=== PATIENT | female | born 1995 | race Caucasian/White ===

== ENCOUNTER 2017-02-21 21:15 | Emergency (ER) | payer OTHER ==
[~2017-02-21] VITALS: Ht 177.8 cm; Wt 105.2 kg
[~2017-02-21 21:15] MED LIST: ALBUTEROL0.09 MG/A2 IH; AMOXIL500 MG PO; ATIVAN0.5 MG PO; ATIVAN1 MG PO; AUGMENTIN 875 M1 TAB PO; BACTRIM DS 8001 TA1 PO; BIRTH CONTROL1 EAC1 PO; CELEXA20 MG PO; CELEXA40 MG PO; CIPRO250 MG PO; CYCLOBENZAPRINE10 MG PO; FLEXERIL5 MG PO; GLUCOPHAGE500 M1 PO; GLUCOPHAGE500 MG PO; GLYBURIDE5 MG PO; HYDROCODONE BIT1 T11 PO; IBU800 MG PO; INDERAL20 MG PO; INDERAL40 MG PO; LISINOPRIL2.5 MG PO; MACROBID100 M1 PO; METFORMIN850 MG PO; MOTRIN800 MG PO; Metformin Hydr500 MG; NAPROSYN500 MG PO; NORCO 5-325 TA1 EACH PO; PAXIL20 MG PO; PREDNISONE10 MG PO; PYRIDIUM200 MG PO; TOPAMAX100 MG PO; TOPIRAMATE200 MG PO; TOPROL XL200 MG PO; TRULICITY0.75 MG/0. SC; VENTOLIN H0.09 MG/AC INH; WELLBUTRIN XL300 MG PO; ZITHROMAX Z PA250 MG PO; ZITHROMAX Z-PA250 MG PO; ZOFRAN4 MG PO; ZYRTEC10 MG PO
[2017-02-21 21:47] LABS: BASO # 0.1 10*3/uL (0.0-0.1); BASO % 0.5 % (0.0-1.0); EOS # 0.1 10*3/uL (0.0-0.4); EOS % 0.6 % (1.0-4.0); HEMATOCRIT 43.6 % (37.0-47.0); LYMPH # 2.9 10*3/uL (1.3-4.4); LYMPH % 29.4 % (27.0-41.0); MEAN CORPUSCULAR HGB 29.2 pg (27.0-31.0); MEAN CORPUSCULAR HGB CONC 34.4 g/dl (33.0-37.0); MEAN PLATELET VOLUME 11.2 fl (9.6-12.3); MONO # 0.8 10*3/uL (0.1-1.0); MONO % 7.7 % (3.0-9.0); NEUT # 6.2 10*3/uL (2.3-7.9); NEUT % 61.4 % (47.0-73.0); PLATELET COUNT AUTOMATED 295 10*3/uL (130-400); RED BLOOD COUNT 5.13 10*6/uL (4.10-5.10); RED CELL DISTRI WIDTH 12.4 % (0-14.5)
[2017-02-21 21:57] LABS: PROTHROMBIN TIME 10.9 SECONDS (9.0-12.4)
[2017-02-21 22:04] LABS: ALBUMIN 3.4 gm/dl (3.1-4.5); ALKALINE PHOSPHATASE 79 U/L (45-117); BILIRUBIN, TOTAL 0.3 mg/dl (0.2-1.0); BUN 11 mg/dl (7-24); CARBON DIOXIDE 27 mmol/L (21-32); CHLORIDE 103 mmol/L (98-107); EST GLOM FILT AFRICAN AMERICAN > 60 ml/min; MAGNESIUM 1.8 mg/dL (1.5-2.1); SGOT/AST 31 IU/L (3-35); SGPT/ALT 60 U/L (12-78); SODIUM 137 mmol/L (136-145); TOTAL PROTEIN 6.5 gm/dL (6.4-8.2)
[2017-02-21 22:05] LABS: TROPONIN I < 0.015 ng/ml (<0.045)
[2017-02-21 22:06] LABS: GLUCOSE 385 mg/dL (65-99)
[2017-02-21 22:21] VITALS: BP 116/54
[2017-02-21] MEDS ORDERED: METFORMIN HCL500 MG PO (22:36)
== END 2017-02-21 22:42 | disposition home or self-care (01) ==
LOC: ED 21:15
PROVIDERS: Emergency Medicine Emergency Medical Services
DX: R07.89 Other chest pain (principal); E11.9 Type 2 diabetes mellitus without complications; Z79.4 Long term (current) use of insulin; Z88.1 Allergy status to other antibiotic agents; F41.9 Anxiety disorder, unspecified

== ENCOUNTER 2017-03-23 22:04 | Emergency (ER) | payer OTHER ==
[~2017-03-23] VITALS: Ht 177.8 cm; Wt 90.7 kg
--- NOTE | ~2017-03-23 | EKG ---
[place], [place] ELECTROCARDIOGRAM REPORT NAME: RODERICK OJEDA UNIT #: [id number] ROOM: DOCTOR: MILAN LI MD BIRTHDATE: [birth year] DOS: 03/23/2017 TIME: 2347. FINDINGS: Normal sinus rhythm. Probable early repolarization. Borderline electrocardiogram. MILAN LI MD CM:EKGRPT:ELECTROCARDIOGRAM REPORT [id number] 1257 MILAN LI MD
--- NOTE | ~2017-03-23 | EKG ---
[place], [place] ELECTROCARDIOGRAM REPORT NAME: RODERICK OJDEA UNIT #: [id number] ROOM: DOCTOR: MILAN LI MD BIRTHDATE: [birth year] DOS: 03/23/2017 TIME: 2245. FINDINGS: Sinus arrhythmia. Early repolarization. Borderline electrocardiogram. MILAN LI MD CM:EKGRPT:ELECTROCARDIOGRAM REPORT 1139 1258 MILAN LI MD
[~2017-03-23 22:04] MED LIST changes: +METFORMIN HCL500 MG PO
[2017-03-23 22:46] LABS: BASO % 0.4 % (0.0-1.0); HEMATOCRIT 43.7 % (37.0-47.0); HEMOGLOBIN 15.2 g/dl (12.0-16.0); LYMPH # 1.7 10*3/uL (1.3-4.4); LYMPH % 17.9 % (27.0-41.0); MEAN CELL VOLUME 83.6 fl (81.0-99.0); MEAN CORPUSCULAR HGB 29.1 pg (27.0-31.0); MEAN CORPUSCULAR HGB CONC 34.8 g/dl (33.0-37.0); MEAN PLATELET VOLUME 10.9 fl (9.6-12.3); MONO # 0.6 10*3/uL (0.1-1.0); MONO % 5.8 % (3.0-9.0); NEUT # 7.3 10*3/uL (2.3-7.9); NEUT % 75.6 % (47.0-73.0); PLATELET COUNT AUTOMATED 266 10*3/uL (130-400); RED BLOOD COUNT 5.23 10*6/uL (4.10-5.10); RED CELL DISTRI WIDTH 12.1 % (0-14.5); WHITE BLOOD COUNT 9.7 10*3/uL (4.8-10.8)
[2017-03-23 23:00] LABS: INTERNATIONAL NORM RATIO 1.1 (2.0-3.5); PROTHROMBIN TIME 11.5 SECONDS (9.0-12.4)
[2017-03-23 23:03] LABS: ALBUMIN 3.7 gm/dl (3.1-4.5); ALKALINE PHOSPHATASE 73 U/L (45-117); BILIRUBIN, TOTAL 0.5 mg/dl (0.2-1.0); BUN 10 mg/dl (7-24); CARBON DIOXIDE 25 mmol/L (21-32); CHLORIDE 105 mmol/L (98-107); EST GLOM FILT AFRICAN AMERICAN > 60 ml/min; GLUCOSE 283 mg/dL (65-99); MAGNESIUM 1.7 mg/dL (1.5-2.1); POTASSIUM 3.7 mmol/L (3.5-5.1); SGOT/AST 36 IU/L (3-35); SGPT/ALT 62 U/L (12-78); SODIUM 137 mmol/L (136-145); TOTAL PROTEIN 6.8 gm/dL (6.4-8.2)
[2017-03-23 23:06] LABS: TROPONIN I < 0.015 ng/ml (<0.045)
[2017-03-24 00:17] VITALS: BP 120/70
[2017-03-24] MEDS ORDERED: METFORMIN500 MG PO (01:11)
== END 2017-03-24 01:09 | disposition home or self-care (01) ==
LOC: ED 22:04
PROVIDERS: Student in an Organized Health Care Education/Training Program
DX: F41.0 Panic disorder [episodic paroxysmal anxiety] (principal); E11.9 Type 2 diabetes mellitus without complications; Z88.1 Allergy status to other antibiotic agents

== ENCOUNTER 2017-06-30 13:41 | Emergency (ER) | payer OTHER ==
[~2017-06-30] VITALS: Wt 105.2 kg
[~2017-06-30 13:41] MED LIST changes: +METFORMIN500 MG PO
[2017-06-30 13:48] VITALS: BP 119/68
[2017-06-30 14:20] LABS: BASO % 0.4 % (0.0-1.0); EOS # 0.1 10*3/uL (0.0-0.4); EOS % 0.8 % (1.0-4.0); HEMATOCRIT 45.9 % (37.0-47.0); LYMPH % 21.9 % (27.0-41.0); MEAN CELL VOLUME 84.4 fl (81.0-99.0); MEAN CORPUSCULAR HGB 29.4 pg (27.0-31.0); MEAN CORPUSCULAR HGB CONC 34.9 g/dl (33.0-37.0); MEAN PLATELET VOLUME 10.8 fl (9.6-12.3); MONO # 0.8 10*3/uL (0.1-1.0); MONO % 8.3 % (3.0-9.0); NEUT # 6.4 10*3/uL (2.3-7.9); NEUT % 68.2 % (47.0-73.0); PLATELET COUNT AUTOMATED 261 10*3/uL (130-400); RED BLOOD COUNT 5.44 10*6/uL (4.10-5.10); RED CELL DISTRI WIDTH 12.6 % (0-14.5); WHITE BLOOD COUNT 9.3 10*3/uL (4.8-10.8)
[2017-06-30 14:26] LABS: INTERNATIONAL NORM RATIO 1.1 (2.0-3.5); PROTHROMBIN TIME 11.3 SECONDS (9.0-12.4)
[2017-06-30 14:37] LABS: ALBUMIN 3.6 gm/dl (3.1-4.5); ALKALINE PHOSPHATASE 82 U/L (45-117); BILIRUBIN, TOTAL 0.8 mg/dl (0.2-1.0); BUN 8 mg/dl (7-24); CARBON DIOXIDE 24 mmol/L (21-32); CHLORIDE 106 mmol/L (98-107); EST GLOM FILT AFRICAN AMERICAN > 60 ml/min; GLUCOSE 296 mg/dL (65-99); MAGNESIUM 1.9 mg/dL (1.5-2.1); SGOT/AST 39 IU/L (3-35); SGPT/ALT 65 U/L (12-78); SODIUM 136 mmol/L (136-145)
[2017-06-30 14:39] LABS: TROPONIN I < 0.015 ng/ml (<0.045)
[2017-06-30 14:54] LABS: BILIRUBIN NEGATIVE (NEGATIVE); BLOOD NEGATIVE (NEGATIVE); CLARITY CLEAR (CLEAR); COLOR YELLOW (YELLOW); GLUCOSE 3+ (NEGATIVE); KETONE 2+ (NEGATIVE); LEUKO ESTERASE NEGATIVE (NEGATIVE); NITRITE NEGATIVE (NEGATIVE); PH 5.5 (5.0-9.0); PROTEIN NEGATIVE (NEGATIVE); UROBILINOGEN 0.2 E.U./dl (0.2-1.0)
[2017-06-30 15:06] LABS: BACTERIA 1+; URINE REFLEX COMMENT NO (NO); YEAST 3+
[2017-06-30] MEDS ORDERED: METFORMIN HCL500 MG PO (15:39)
== END 2017-06-30 21:30 | disposition home or self-care (01) ==
LOC: ED 13:41
PROVIDERS: Physician Assistant
DX: R07.9 Chest pain, unspecified (principal); E11.9 Type 2 diabetes mellitus without complications; Z88.1 Allergy status to other antibiotic agents

== ENCOUNTER 2017-08-06 22:49 | Emergency (ER) | payer OTHER ==
[~2017-08-06] VITALS: Ht 180.3 cm; Wt 105.2 kg
[2017-08-06 22:56] VITALS: BP 154/69
[2017-08-06 23:26] LABS: BASO % 0.4 % (0.0-1.0); EOS % 0.3 % (1.0-4.0); HEMATOCRIT 42.8 % (37.0-47.0); HEMOGLOBIN 14.4 g/dl (12.0-16.0); LYMPH # 2.5 10*3/uL (1.3-4.4); LYMPH % 31.1 % (27.0-41.0); MEAN CELL VOLUME 85.8 fl (81.0-99.0); MEAN CORPUSCULAR HGB 28.9 pg (27.0-31.0); MEAN CORPUSCULAR HGB CONC 33.6 g/dl (33.0-37.0); MEAN PLATELET VOLUME 11.2 fl (9.6-12.3); MONO # 0.7 10*3/uL (0.1-1.0); MONO % 8.3 % (3.0-9.0); NEUT # 4.7 10*3/uL (2.3-7.9); NEUT % 59.6 % (47.0-73.0); PLATELET COUNT AUTOMATED 238 10*3/uL (130-400); RED BLOOD COUNT 4.99 10*6/uL (4.10-5.10); RED CELL DISTRI WIDTH 12.1 % (0-14.5); WHITE BLOOD COUNT 7.9 10*3/uL (4.8-10.8)
[2017-08-06 23:36] LABS: ACT PARTIAL THROMBO TIME 23.8 SECONDS (20.8-31.5)
[2017-08-06 23:43] LABS: ALBUMIN 3.3 gm/dl (3.1-4.5); ALKALINE PHOSPHATASE 77 U/L (45-117); BUN 13 mg/dl (7-24); CHLORIDE 102 mmol/L (98-107); CREATININE 1.01 mg/dL (0.55-1.02); MAGNESIUM 1.8 mg/dL (1.5-2.1); SGOT/AST 27 IU/L (3-35); SGPT/ALT 51 U/L (12-78); SODIUM 135 mmol/L (136-145); TOTAL PROTEIN 6.4 gm/dL (6.4-8.2)
[2017-08-06 23:45] LABS: TROPONIN I < 0.015 ng/ml (<0.045)
[2017-08-07] MEDS ORDERED: METFORMIN1000 MG PO (00:39)
== END 2017-08-07 01:29 | disposition home or self-care (01) ==
LOC: ED 22:49
PROVIDERS: Emergency Medicine Emergency Medical Services
DX: M94.0 Chondrocostal junction syndrome [Tietze] (principal); E11.65 Type 2 diabetes mellitus with hyperglycemia; E28.2 Polycystic ovarian syndrome; F43.10 Post-traumatic stress disorder, unspecified; F41.8 Other specified anxiety disorders; M25.561 Pain in right knee; J45.909 Unspecified asthma, uncomplicated; Z88.1 Allergy status to other antibiotic agents

== ENCOUNTER 2017-08-17 08:54 | Inpatient (IN) | payer OTHER ==
[~2017-08-17] VITALS: Ht 180.3 cm; Wt 139.9 kg
--- NOTE | ~2017-08-17 | PR ---
[place], [place] PROGRESS NOTE [id number] UN[facility] #: [id number] ROOM: 522 DOCTOR: SHELTON BENDER MD,BETTY BIRTHDATE: [birth year] DOS: 08/19/2017 SUBJECTIVE: She has been noted progressive reduction in respiratory symptoms at this time. The coughing, wheezing and shortness of breath all improved significantly. OBJECTIVE: VITAL SIGNS: Normal temperature, respiratory rate 20, heart rate 72, blood pressure 124/65. HEENT: Chronic obesity. NECK: Supple. CARDIOVASCULAR: S1, S2 audible. LUNGS: Mild to moderate decreased breath sounds, scattered expiratory wheezing, no crackles. ABDOMEN: Soft, nontender. IMPRESSION: Progressive resolution of acute exacerbation of bronchial asthma, acute tracheobronchitis noted at the present time. PLAN OF MANAGEMENT: The patient could be discharged home today on oral medications at tapering dose of prednisone, antibiotics, and inhaled corticosteroids and short acting bronchodilators. Outpatient followup suggested after discharge for further office assessment for the management of bronchial asthma. BETTY PEOPLES MD CM:PNTRANS [id number] BETTY BENDER MD 08/20/17 0015 interface
--- NOTE | ~2017-08-17 | CON ---
[place], [place] REPORT OF CONSULTATION NAME[id number] UNIT #: [id number] ROOM: 522 DOCTOR: BETTY MATSON MD BIRTHDATE: [birth year] DOS: 08/18/2017 PULMONARY CONSULTATION EVALUATION AND MANAGEMENT CONSULTATION REQUESTED BY: Hospitalist services. REASON FOR CONSULTATION: Assessment of bronchial asthma. HISTORY OF PRESENT ILLNESS: A 22-year-old white female who has been known with history of bronchial asthma since childhood, has not had any flare of bronchial asthma, not using regular respiratory medications for the past 20 years. She has been admitted to the hospital under the hospitalist services on 08/17/2017. The patient stated that she developed acute respiratory sickness about couple of days ago prior to admission. She was noted some sore throat with later on symptoms of shortness of breath, difficulty taking deep breathing. She also developed severe wheezing as well as tightness in the chest. The patient does have a cough which has been noted mild to moderate with minimal sputum expectoration or nonproductive cough. She denies symptoms of hemoptysis. REVIEW OF SYSTEMS: CONSTITUTIONAL: Fatigue and tiredness noted without symptoms of fever or chills. EYES: Denies any burning, redness, or tenderness. EAR, NOSE, THROAT SYMPTOMS: Denies sore throat, hoarseness, otalgia, postnasal drainage or epistaxis. CARDIOVASCULAR: Denies anginal pain, edema or pain of the lower extremities. GASTROINTESTINAL: Dysphagia, nausea, vomiting, diarrhea, abdominal pain, hematemesis, melena, or hematochezia. SKIN: Denies lesions or rashes. CENTRAL NERVOUS SYSTEM: No dizziness, headache, diplopia, syncopal episodes. Remaining systems were reviewed and they were noted all negative. PAST MEDICAL HISTORY: 1. Known with history of bronchial asthma. 2. Obesity. 3. Polycystic ovarian syndrome. 4. Type 2 diabetes mellitus. 5. Generalized anxiety disorder. 6. Hematuria was also described in the past. SURGICAL HISTORY: Noted tonsillectomy. SOCIAL HISTORY: The patient stated that she is single, worked in the [employer]. Does not have any children. Smoking was noted since younger age, a half a pack of cigarettes per day. Denies history of alcohol use or any illicit drugs. FAMILY HISTORY: History of coronary artery disease in the father and COPD with fibromyalgia reported in the mother. [place], [place] REPORT OF CONSULTATION NAME: RODERICK OJEDA UNIT #: [id number] ROOM: 522 DOCTOR: SHELTON BENDER MD,BETTY BIRTHDATE: [birth year] HOME MEDICATIONS: Noted use of Ativan. DRUG ALLERGIES: NOTED ALLERGY TO OMNICEF. PHYSICAL EXAMINATION: GENERAL: This is a 22-year-old white female, currently sitting on her bed without any acute distress at this time. Height was noted 5 feet 11 inches, weight of 308 pounds, BMI 43. VITAL SIGNS: Normal temperature, respiratory rate was recorded 20-25, heart rate 96-107, blood pressure 142/88-138/78. Intake patient is 5200 mL, output 800 mL without Lee catheter. Pulse ox is 94-98% saturation on room air recorded. HEENT: Examination shows chronic obesity. NECK: Supple. Decreased posterior pharyngeal space, high tongue base, crowding of soft tissue structures. CARDIOVASCULAR: S1, S2 audible. LUNGS: Noted with moderate reduced breath sounds, expiratory wheezing without any crackles. ABDOMEN: Soft, nontender and obese. EXTREMITIES: Show no edema, clubbing, cyanosis. NEUROLOGIC: Cranial nerves 2-12 intact. No focal deficits. MUSCULOSKELETAL: No deformities. SKIN: Showed no lesions or rashes. LABORATORY DATA: CBC 08/17/2017, WBC count 14.6, hemoglobin and hematocrit normal, platelet count were normal. CMP of 08/17/2017: Glucose 262, BUN and creatinine was normal. Bilirubin 1.2. Lactic acid yesterday was noted 1.5, which were normal. Ultrasound for lower extremities was noted without any deep venous thrombosis yesterday. CMP this morning, glucose 261, BUN and creatinine was normal. Carbon dioxide 18. LFTs were normal. CBC of this morning, WBC count 15.2, remaining CBC was normal. PT/PTT normal this morning. Chest x-ray, 2-view which was done for the patient on this admission was personally reviewed, does not show any acute pulmonary infiltration or other abnormalities. Bedside blood glucose yesterday evening was elevated at 591. Influenza A and B, nasal washing antigen noted negative for influenza A and B, nasal washing antigens. IMPRESSION: 1. The patient will be currently admitted to the hospital, low grade, chronic nicotine dependence, history of bronchial asthma, currently admitted to the hospice with severe acute exacerbation of bronchial asthma and acute bronchitis, could be viral in origin. 2. Leukocytosis, steroid induced. 3. Uncontrolled diabetes mellitus, worsened further with the use of the corticosteroids with significant elevation of the blood glucose noted last evening. 4. History of polycystic ovarian syndrome. 5. History of general anxiety disorder and others. PLAN OF MANAGEMENT: The patient was started on the bronchodilator which will be continued every 4 hours by the primary care attending team. The patient is [place], [place] REPORT OF CONSULTATION NAME: RODERICK OJEDA UNIT #: [id number] ROOM: 522 DOCTOR: SHELTON BENDER MD,BETTY BIRTHDATE: [birth year] getting IV Solu-Medrol 60 mg b.i.d. which will be gradually decreased based on improvement in the symptoms. Monitor respiratory status. Supportive therapy, plan of management or the respiratory viral panel for this patient as well. Addition treatment changes need to be made for the patient based on the progression of the illness. Sputum for Gram stain culture and expectorate any sputum will be sent to the lab. Other supportive plan of therapy, care and management. Usual care. Reduction of Solu-Medrol based on progression of illness. The diabetes mellitus has already been managed. The patient with addition of changes in the management, use of sliding scale insulin coverage and other medication adjusted accordingly. Tobacco cessation has been discussed with the patient. User nicotine replacement patches, the patient would like to use them. Thanks for allowing me to participate in the care of this patient. BETTY PEOPLES MD CM:CONSTR:REPORT OF CONSULTATION 1126 08/18/17 1656 interface
[~2017-08-17 08:54] MED LIST changes: +METFORMIN1000 MG PO
[2017-08-17 09:03] VITALS: BP 133/75
[2017-08-17 09:23] LABS: BASO % 0.2 % (0.0-1.0); HEMATOCRIT 45.7 % (37.0-47.0); HEMOGLOBIN 15.7 g/dl (12.0-16.0); LYMPH # 2.1 10*3/uL (1.3-4.4); LYMPH % 14.6 % (27.0-41.0); MEAN CELL VOLUME 85.1 fl (81.0-99.0); MEAN CORPUSCULAR HGB 29.2 pg (27.0-31.0); MEAN CORPUSCULAR HGB CONC 34.4 g/dl (33.0-37.0); MONO # 1.3 10*3/uL (0.1-1.0); NEUT # 11.1 10*3/uL (2.3-7.9); NEUT % 75.6 % (47.0-73.0); PLATELET COUNT AUTOMATED 263 10*3/uL (130-400); RED BLOOD COUNT 5.37 10*6/uL (4.10-5.10); RED CELL DISTRI WIDTH 12.1 % (0-14.5); WHITE BLOOD COUNT 14.6 10*3/uL (4.8-10.8)
[2017-08-17 09:37] LABS: ALBUMIN 3.4 gm/dl (3.1-4.5); ALKALINE PHOSPHATASE 81 U/L (45-117); BUN 8 mg/dl (7-24); CHLORIDE 104 mmol/L (98-107); CREATININE 0.74 mg/dL (0.55-1.02); POTASSIUM 3.9 mmol/L (3.5-5.1); SGOT/AST 16 IU/L (3-35); SGPT/ALT 38 U/L (12-78); SODIUM 136 mmol/L (136-145); TOTAL PROTEIN 7.1 gm/dL (6.4-8.2)
[2017-08-17 11:41] VITALS: BP 143/83; BP 147/83
[2017-08-17 12:00] VITALS: BP 147/83
--- NOTE | 2017-08-17 13:44 | NUR ---
DR. PEOPLES CONTACTED FOR CONSULT.
--- NOTE | 2017-08-17 14:25 | NUR ---
Time: 1140 A 22 year old FEMALE admitted to 5E under services of ELVA ALAS DO, Pt. arrived via stretcher from ER. Chief complaint: KATE CEJA
[2017-08-17 16:00] VITALS: BP 130/75
[2017-08-17 20:00] VITALS: BP 129/83; BP 138/78
--- NOTE | 2017-08-17 20:00 | NUR ---
SITTING UP IN BED WITH HOB ELEVATED. LUNGS DIMINISHED BILATERALLY; PT. HAS AN OCCASIONAL MOIST COUGH; NONPRODUCTIVE AT THIS TIME. IV FLUIDS INFUSING INTO RIGHT ARM WITHOUT DIFFICULTY; SITE ASYMPTOMATIC. PT. VOICES NO C/O AT THIS TIME; NO DISTRESS NOTED. CALL LIGHT WITHIN REACH.
--- NOTE | 2017-08-17 22:24 | NUR ---
BLOOD SUGAR CRITICALLY HIGH; STAT REFLUX ORDERED EARLIER. CALLED DR. AKHTAR; ORDERS RECEIVED TO GIVE 14 UNITS OF INSULIN & RECHECK BLOOD SUGAR IN ONE HOUR.
--- NOTE | 2017-08-17 23:17 | NUR ---
BLOOD SUGAR 390; DR. AKHTAR INFORMED.
[2017-08-18] VITALS: BP 140/86
[2017-08-18 06:20] LABS: HEMATOCRIT 43.1 % (37.0-47.0); HEMOGLOBIN 14.5 g/dl (12.0-16.0); MEAN CELL VOLUME 85.3 fl (81.0-99.0); MEAN CORPUSCULAR HGB 28.7 pg (27.0-31.0); MEAN CORPUSCULAR HGB CONC 33.6 g/dl (33.0-37.0); MEAN PLATELET VOLUME 10.9 fl (9.6-12.3); PLATELET COUNT AUTOMATED 275 10*3/uL (130-400); RED BLOOD COUNT 5.05 10*6/uL (4.10-5.10); RED CELL DISTRI WIDTH 12.1 % (0-14.5); WHITE BLOOD COUNT 15.2 10*3/uL (4.8-10.8)
--- NOTE | 2017-08-18 06:21 | NUR ---
BLOOD SUGAR 250; COVERAGE GIVEN PER EMAR.
[2017-08-18 06:50] LABS: ALBUMIN 3.2 gm/dl (3.1-4.5); BUN 10 mg/dl (7-24); CHLORIDE 109 mmol/L (98-107); CHOLESTEROL 165 mg/dL (<200); CREATININE 0.56 mg/dL (0.55-1.02); MAGNESIUM 2.2 mg/dL (1.5-2.1); PHOSPHOROUS 2.9 mg/dL (2.5-4.9); POTASSIUM 4.2 mmol/L (3.5-5.1); SGOT/AST 8 IU/L (3-35); SGPT/ALT 29 U/L (12-78); SODIUM 138 mmol/L (136-145); TRIGLYCERIDES 75 mg/dl (<150); VLDL CHOLESTEROL 15 mg/dL (6-40)
[2017-08-18 06:56] LABS: ALKALINE PHOSPHATASE 78 U/L (45-117); FREE T4 1.13 ng/dl (0.76-1.46); HDL CHOLESTEROL 39 mg/dl (40-60); LDL CHOLESTEROL 111 mg/dL (9-159); THYROID STIM HORMONE (HS) 0.946 uIU/ml (0.358-4.75)
[2017-08-18 06:57] LABS: BASOPHILS 1 % (0-1); TOTAL CELLS COUNTED 100 #CELLS
[2017-08-18 06:58] LABS: PLATELET SUFFICIENCY NORMAL (NORMAL)
[2017-08-18 07:08] LABS: ACT PARTIAL THROMBO TIME 24.7 SECONDS (20.8-31.5); INTERNATIONAL NORM RATIO 1.1 (2.0-3.5)
[2017-08-18 08:00] VITALS: BP 142/88
--- NOTE | 2017-08-18 08:41 | NUR ---
Deportation Examiner in to talk to patient. Patient states lives at HOME with HER PARENTS AND BROTHER. There are 12 steps in the home. Physician: NO PCP [facility]acy: [facility] [place] Home health services: NONE Patient's level of ADLs: INDEPENDENT Patient has working utilities: YES DME: NONE Follow-up physician's appointment after d/c: WILL BE MADE PRIOR TO DC Does patient want to access PORTAL?: Discharge plan HOME. JESSICA JIN
[2017-08-18 08:54] LABS: VITAMIN D, 25-HYDROXY 8.7 ng/mL (30-100)
--- NOTE | 2017-08-18 11:23 | NUR ---
Shift chart check completed.
[2017-08-18 12:00] VITALS: BP 129/59; BP 131/44
--- NOTE | 2017-08-18 13:48 | NUR ---
RESPIRATORY VIRUS PROFILE SENT
[2017-08-18 16:00] VITALS: BP 112/51
--- NOTE | 2017-08-18 17:00 | NUR ---
IV IN RIGHT FA INFILTRATED, NEW IV STARTED RIGHT AC AFTER SEVERAL UNSUCCESSFUL ATTEMPTS. PT TOLERATED WELL, GOOD BLOOD RETURN, IVF RUNNING
[2017-08-18 20:00] VITALS: BP 125/60
--- NOTE | 2017-08-18 22:04 | NUR ---
24 HR chart check completed.
[2017-08-19] VITALS: BP 105/86
--- NOTE | 2017-08-19 02:55 | NUR ---
PATIENT RESTING IN BED WITH NO S/S OF DISTRESS. BED IN LOWEST POSITION, CALL LIGHT IN REACH
[2017-08-19 06:15] LABS: BASO % 0.1 % (0.0-1.0); HEMATOCRIT 44.9 % (37.0-47.0); HEMOGLOBIN 14.5 g/dl (12.0-16.0); LYMPH # 1.2 10*3/uL (1.3-4.4); LYMPH % 7.8 % (27.0-41.0); MEAN CELL VOLUME 87.9 fl (81.0-99.0); MEAN CORPUSCULAR HGB 28.4 pg (27.0-31.0); MEAN CORPUSCULAR HGB CONC 32.3 g/dl (33.0-37.0); MEAN PLATELET VOLUME 11.2 fl (9.6-12.3); MONO # 0.4 10*3/uL (0.1-1.0); MONO % 2.5 % (3.0-9.0); NEUT # 13.3 10*3/uL (2.3-7.9); NEUT % 88.2 % (47.0-73.0); PLATELET COUNT AUTOMATED 282 10*3/uL (130-400); RED BLOOD COUNT 5.11 10*6/uL (4.10-5.10); RED CELL DISTRI WIDTH 12.3 % (0-14.5); WHITE BLOOD COUNT 15.1 10*3/uL (4.8-10.8)
[2017-08-19 06:34] LABS: BUN 16 mg/dl (7-24); CHLORIDE 108 mmol/L (98-107); CREATININE 0.75 mg/dL (0.55-1.02); MAGNESIUM 2.2 mg/dL (1.5-2.1); PHOSPHOROUS 4.3 mg/dL (2.5-4.9); POTASSIUM 4.5 mmol/L (3.5-5.1); SODIUM 139 mmol/L (136-145)
[2017-08-19 08:00] VITALS: BP 124/65
[2017-08-19] MEDS ORDERED: PREDNISONE10 MG PO (11:16)
[2017-08-19] MEDS ORDERED: PROAIR HFA8.5 GM INH (11:16)
[2017-08-19] MEDS ORDERED: GLUCOPHAGE500 MG PO (11:16)
[2017-08-19] MEDS ORDERED: DOXYCYCLINE100 M3 PO (11:16)
--- NOTE | 2017-08-19 11:34 | NUR ---
IV IN RIGHT AC REMOVED, DRESSING APPLIED. PT TO BE D/C HOME.
--- NOTE | 2017-08-19 11:55 | NUR ---
Discharge instructions reviewed with patient. Patient receptive and verbalizes understanding. Follow-up care understood. Written instructions given to patient. understands new rx electronically sent to pharmacy and to cherry picker operator new rx at pharmacy. no questions at this time. discharge complete CHARITY GIBBONS
[2017-08-22 01:06] LABS: ADENOVIRUS Negative (Negative); INFLUENZA A Negative (Negative); INFLUENZA B Negative (Negative); METAPNEUMOVIRUS Negative (Negative); PARAINFLUENZA 1 Negative (Negative); PARAINFLUENZA 2 Negative (Negative); PARAINFLUENZA 3 Negative (Negative); RHINOVIRUS Positive (Negative); RSV A Negative (Negative); RSV B Negative (Negative)
== END 2017-08-19 11:55 | disposition home or self-care (01) | DRG 871 ==
LOC: ED → 5E 10:47 → EDHOLD 10:47 → 5E 11:03
PROVIDERS: Hospitalist; Internal Medicine Critical Care Medicine; Nurse Practitioner Family; ADMIT Internal Medicine
DX: A41.9 Sepsis, unspecified organism (principal); J18.9 Pneumonia, unspecified organism; E44.0 Moderate protein-calorie malnutrition; J45.901 Unspecified asthma with (acute) exacerbation; E11.65 Type 2 diabetes mellitus with hyperglycemia; Z68.41 Body mass index [BMI] 40.0-44.9, adult; F07.81 Postconcussional syndrome; F41.1 Generalized anxiety disorder; Z77.22 Contact with and (suspected) exposure to environmental tobacco smoke (acute) (chronic); E28.2 Polycystic ovarian syndrome; J20.9 Acute bronchitis, unspecified; E66.9 Obesity, unspecified; Z79.84 Long term (current) use of oral hypoglycemic drugs; Z88.8 Allergy status to other drugs, medicaments and biological substances; Z82.5 Family history of asthma and other chronic lower respiratory diseases; Z83.3 Family history of diabetes mellitus; Z83.6 Family history of other diseases of the respiratory system; Z79.899 Other long term (current) drug therapy; D72.829 Elevated white blood cell count, unspecified; T38.0X5A Adverse effect of glucocorticoids and synthetic analogues, initial encounter; Y92.89 Other specified places as the place of occurrence of the external cause

== ENCOUNTER → 2017-10-16 | Outpatient (CLI) | payer OTHER ==
[~2017-10-16] MED LIST changes: +DOXYCYCLINE100 M3 PO; +PROAIR HFA8.5 GM INH
== END | disposition home or self-care (01) ==
LOC: RAD 14:09
DX: R05 Cough (principal); R07.9 Chest pain, unspecified; J40 Bronchitis, not specified as acute or chronic; Z87.09 Personal history of other diseases of the respiratory system; Z87.01 Personal history of pneumonia (recurrent)

== ENCOUNTER 2017-10-29 13:54 | Inpatient (IN) | payer OTHER ==
[~2017-10-29] VITALS: Ht 177.8 cm; Wt 142.1 kg
[2017-10-29] VITALS (7 sets, daily range): BP systolic 107–136; BP diastolic 54–78
--- NOTE | ~2017-10-29 | EKG ---
[place], [place] ELECTROCARDIOGRAM REPORT NAME: RODERICK OJEDA UNIT #: [id number] ROOM: 422 DOCTOR: SHELTON BENDER MD,BETTY BIRTHDATE: [birth year] DOS: 10/29/2017 Electrocardiogram done on 10/29/2017 at 4:21 p.m. Sinus tachycardia was noted. The patient's heart rate of 113 beats per minute without any ischemic changes or other abnormalities. BETTY PEOPLES MD CM:EKGRPT:ELECTROCARDIOGRAM REPORT 1421 1503 BETTY BENDER MD
[2017-10-29 14:58] LABS: BASO % 0.3 % (0.0-1.0); HEMATOCRIT 42.2 % (37.0-47.0); HEMOGLOBIN 14.5 g/dl (12.0-16.0); LYMPH # 0.9 10*3/uL (1.3-4.4); LYMPH % 9.5 % (27.0-41.0); MEAN CELL VOLUME 82.7 fl (81.0-99.0); MEAN CORPUSCULAR HGB 28.4 pg (27.0-31.0); MEAN CORPUSCULAR HGB CONC 34.4 g/dl (33.0-37.0); MEAN PLATELET VOLUME 10.2 fl (9.6-12.3); MONO # 0.5 10*3/uL (0.1-1.0); MONO % 5.5 % (3.0-9.0); NEUT # 8.3 10*3/uL (2.3-7.9); NEUT % 84.4 % (47.0-73.0); PLATELET COUNT AUTOMATED 328 10*3/uL (130-400); RED CELL DISTRI WIDTH 12.4 % (0-14.5); WHITE BLOOD COUNT 9.9 10*3/uL (4.8-10.8)
[2017-10-29 15:13] LABS: ALBUMIN 3.7 gm/dl (3.1-4.5); ALKALINE PHOSPHATASE 65 U/L (45-117); BUN 8 mg/dl (7-24); CHLORIDE 105 mmol/L (98-107); CREATININE 0.83 mg/dL (0.55-1.02); POTASSIUM 3.6 mmol/L (3.5-5.1); SGOT/AST 17 IU/L (3-35); SGPT/ALT 30 U/L (12-78); SODIUM 139 mmol/L (136-145); TOTAL PROTEIN 7.1 gm/dL (6.4-8.2)
--- NOTE | 2017-10-29 16:58 | NUR ---
RESTING IN BED. RESPS ARE MILDLY LABORED. FEELING DIZZY. RAYA STEIN RN
--- NOTE | 2017-10-29 20:30 | NUR ---
Time: 2029 A 22 year old FEMALE admitted to 4E under services of ZACHARY WALLS DO. Pt. arrived via wheel chair from ER. Chief complaint: RESP ILNESS. SWATI WOODRUFF D
--- NOTE | 2017-10-29 22:26 | NUR ---
MED REC UP TO DATE, PER PATIENT.
[2017-10-29] MEDS ORDERED: METFORMIN1000 MG PO (22:27)
[2017-10-30] VITALS: BP 119/76
--- NOTE | 2017-10-30 02:00 | NUR ---
SLEEPING. RESP EASY AND NONLABORED ON ROOM AIR. NO DISTRESS NOTED. CALL LIGHT IN REACH. WILL CONTINUE TO MONITOR.
[2017-10-30 07:25] LABS: BASO % 0.1 % (0.0-1.0); HEMATOCRIT 42.7 % (37.0-47.0); HEMOGLOBIN 14.6 g/dl (12.0-16.0); LYMPH # 0.8 10*3/uL (1.3-4.4); LYMPH % 8.8 % (27.0-41.0); MEAN CELL VOLUME 85.4 fl (81.0-99.0); MEAN CORPUSCULAR HGB 29.2 pg (27.0-31.0); MEAN CORPUSCULAR HGB CONC 34.2 g/dl (33.0-37.0); MEAN PLATELET VOLUME 10.6 fl (9.6-12.3); MONO # 0.3 10*3/uL (0.1-1.0); MONO % 3.3 % (3.0-9.0); NEUT % 87.3 % (47.0-73.0); PLATELET COUNT AUTOMATED 338 10*3/uL (130-400); RED CELL DISTRI WIDTH 12.4 % (0-14.5); WHITE BLOOD COUNT 9.1 10*3/uL (4.8-10.8)
[2017-10-30 07:54] LABS: BUN 9 mg/dl (7-24); CHLORIDE 104 mmol/L (98-107); CHOLESTEROL 145 mg/dL (<200); CREATININE 0.83 mg/dL (0.55-1.02); PHOSPHOROUS 2.5 mg/dL (2.5-4.9); POTASSIUM 3.4 mmol/L (3.5-5.1); SODIUM 140 mmol/L (136-145); TRIGLYCERIDES 100 mg/dl (<150); VLDL CHOLESTEROL 20 mg/dL (6-40)
[2017-10-30 08:00] VITALS: BP 125/42
[2017-10-30 08:02] LABS: ACT PARTIAL THROMBO TIME 25.7 SECONDS (20.8-31.5); INTERNATIONAL NORM RATIO 1.1 (2.0-3.5)
[2017-10-30 08:04] LABS: HDL CHOLESTEROL 36 mg/dl (40-60); LDL CHOLESTEROL 89 mg/dL (9-159); THYROID STIM HORMONE (HS) 0.472 uIU/ml (0.358-4.75)
--- NOTE | 2017-10-30 08:30 | NUR ---
Chocolate Molder in to talk to patient. Patient states lives at home with family. There are 14 steps in the home. Physician: Dr. Javier Ramirez [facility]acy: [facility] Home health services: none Patient's level of ADLs: INDEPENDENT Patient has working utilities: yes DME: none Follow-up physician's appointment after d/c: will be made by hospitalist nurse director upon discharge Does patient want to access PORTAL?: no Discharge plan discussed with patient. She lives at home with her family. She in independent in her ADLs and ambulation. When medically stable she will be discharged to home. MAILE WEI
[2017-10-30 08:46] LABS: VITAMIN D, 25-HYDROXY 32.9 ng/mL (30-100)
[2017-10-30 12:00] VITALS: BP 112/49
[2017-10-30 16:00] VITALS: BP 93/55
--- NOTE | 2017-10-30 16:11 | NUR ---
CALLED TO PTS ROOM, PT LYING IN BED WITH EYES CLOSED, PT IS REPSONIVE BUT SOFT SPOKEN, PT REPORTS SOB AND AND CHEST PAIN, INCREASED TEMP 101.9 A, INCREASED HEART RATE INCREASED RESPS, CALL PLACED TO RESP FOR BREATHING TREATMENT. NO IMPROVEMENT, CALL PLACED TO ALYSIA HENNESSY, INSTRUCTED TO GIVE, MORPHNE, AND ACETAMINOPHEN SUPP, ADMINSTERED PER ORDERS, FLUIDS RESTARTED. wILL CONTINTUNE WITH MONITOR
--- NOTE | 2017-10-30 17:30 | NUR ---
PT IN BED, BECOMING MORE ALERT WITH TIME, ASKED PT IF SHE WAS FEELING BETTER AND PT QUIETY SHAKES HEAD YES, ORDERED TO GIVE IV ATIVAN WELL FRAMING CARPENTER, THINKS PT COUDLD POSSIBLY HAVE HAD A ANXIETY ATTACK, WILL CONTINUE TO MONITOR
[2017-10-30 17:36] LABS: HEMATOCRIT 38.2 % (37.0-47.0); HEMOGLOBIN 13.2 g/dl (12.0-16.0); LYMPH # 0.7 10*3/uL (1.3-4.4); MEAN CORPUSCULAR HGB 28.3 pg (27.0-31.0); MEAN CORPUSCULAR HGB CONC 34.6 g/dl (33.0-37.0); MEAN PLATELET VOLUME 10.1 fl (9.6-12.3); MONO # 1.2 10*3/uL (0.1-1.0); NEUT # 9.3 10*3/uL (2.3-7.9); NEUT % 82.6 % (47.0-73.0); PLATELET COUNT AUTOMATED 318 10*3/uL (130-400); RED BLOOD COUNT 4.67 10*6/uL (4.10-5.10); RED CELL DISTRI WIDTH 12.7 % (0-14.5); WHITE BLOOD COUNT 11.3 10*3/uL (4.8-10.8)
[2017-10-30 17:37] LABS: MEAN CELL VOLUME 81.8 fl (81.0-99.0)
[2017-10-30 19:30] VITALS: BP 119/48
--- NOTE | 2017-10-30 19:45 | NUR ---
RESTING IN BED WITH EYES CLOSED; AROUSES WITH SOME DIFFICULTY TO VERBAL/TACTILE STIMULI. HEART RATE IN THE 120'S; PT. AFEBRILE. SEE VITAL SIGNS.
--- NOTE | 2017-10-30 19:55 | NUR ---
CALLED DR. TRAVIS PERTAINING TO PT'S ELEVATED HEART RATE. NEW ORDERS RECEIVED TO INCREASE IV FLUIDS FROM 80/HR TO 125/HR & TO MAKE PATIENT A MONITORED PATIENT FOR TONIGHT.
--- NOTE | 2017-10-30 20:05 | NUR ---
PT. MOVED TO 422 FOR CLOSER OBSERVATION.
--- NOTE | 2017-10-30 22:00 | NUR ---
MORE AWAKE & ALERT. IV FLUIDS CONTINUE TO INFUSE WITHOUT DIFFICULTY. BLOOD SUGAR 162; COVERAGE GIVEN PER EMAR. PT. VOICES NO C/O AT THIS TIME. IN ROOM. CALL LIGHT WITHIN REACH. WILL CONTINUE TO MONITOR.
--- NOTE | 2017-10-30 22:10 | NUR ---
BLOOD SUGAR 162; COVERAGE GIVEN PER EMAR.
[2017-10-31] VITALS: BP 102/42
--- NOTE | 2017-10-31 | NUR ---
AWAKE & ALERT VISITING WITH . PT. VOICES NO C/O AT THIS TIME. NO DISTRESS NOTED. VSS; SEE FLOW SHEET. IV FLUIDS CONTINUE TO INFUSE WITHOUT DIFFICULTY; SITE ASYMPTOMATIC. CALL LIGHT WITHIN REACH.
[2017-10-31 07:22] LABS: HEMATOCRIT 37.1 % (37.0-47.0); HEMOGLOBIN 12.4 g/dl (12.0-16.0); LYMPH # 0.7 10*3/uL (1.3-4.4); LYMPH % 8.5 % (27.0-41.0); MEAN CORPUSCULAR HGB 28.5 pg (27.0-31.0); MEAN CORPUSCULAR HGB CONC 33.4 g/dl (33.0-37.0); MEAN PLATELET VOLUME 10.4 fl (9.6-12.3); MONO # 0.7 10*3/uL (0.1-1.0); MONO % 7.6 % (3.0-9.0); NEUT # 7.1 10*3/uL (2.3-7.9); NEUT % 83.2 % (47.0-73.0); PLATELET COUNT AUTOMATED 316 10*3/uL (130-400); RED BLOOD COUNT 4.35 10*6/uL (4.10-5.10); RED CELL DISTRI WIDTH 13.1 % (0-14.5); WHITE BLOOD COUNT 8.6 10*3/uL (4.8-10.8)
[2017-10-31 07:29] LABS: MEAN CELL VOLUME 85.3 fl (81.0-99.0)
[2017-10-31 07:41] LABS: CHLORIDE 112 mmol/L (98-107); SODIUM 143 mmol/L (136-145)
[2017-10-31 07:59] LABS: ALBUMIN 3.2 gm/dl (3.1-4.5); ALKALINE PHOSPHATASE 54 U/L (45-117); BUN 9 mg/dl (7-24); CREATININE 0.75 mg/dL (0.55-1.02); SGOT/AST 13 IU/L (3-35); SGPT/ALT 27 U/L (12-78); TOTAL PROTEIN 6.2 gm/dL (6.4-8.2)
[2017-10-31 08:00] VITALS: BP 118/78
--- NOTE | 2017-10-31 08:00 | NUR ---
PT SITTING UP IN BED COMFORTABLY EATING BREAKFAST, NO PAIN VERBALIZED AT THIS TIME, VISITING AT BEDSIDE. RADHA MANLEY
[2017-10-31 08:13] LABS: POTASSIUM 4.3 mmol/L (3.5-5.1)
--- NOTE | 2017-10-31 08:30 | NUR ---
Combatant Swimmer in to see patient. No new needs or request at this time. When medically stable she will be discharged to home.
--- NOTE | 2017-10-31 10:00 | NUR ---
PT RESTING QUIETLY IN BED, AT BEDSIDE. DOCTOR WAS IN, POSSIBLE DISCHARGE TOMORROW. AMEYA RAYMONDCC
--- NOTE | 2017-10-31 10:32 | NUR ---
IV FLUIDS D/C'D AT PRESENT, PT SLEEPING BUT INSTRUCTED TO AMBULATE WITHOUT OXYGEN TO SEE HOW SHE TOLERATES AMBULATION JUAN GARCIA
[2017-10-31 16:00] VITALS: BP 115/49
[2017-10-31 20:00] VITALS: BP 100/86
--- NOTE | 2017-10-31 20:28 | NUR ---
PATIENT RESTING IN BED WITH NO NEEDS MADE. NO S/S OF DISTRESS. STATES FEELING MUCH BETTER. BED IN LOWEST POSITOIN, CALL LIGHT IN REACH
[2017-11-01] VITALS: BP 110/62
--- NOTE | 2017-11-01 03:16 | NUR ---
PATIENT RESTING IN BED WITH NO S/S OF DISTRESS. BED IN LOWEST POSITOIN, CALL LIGHT IN REACH
--- NOTE | 2017-11-01 03:21 | NUR ---
24 HR chart check completed.
[2017-11-01 08:00] VITALS: BP 132/80
--- NOTE | 2017-11-01 08:00 | NUR ---
PATIENT IS AWAKE, WATCHING TELEVISON WITH AT BEDSIDE. VOICED BEING ANXIOUS, MEDICATED PER MAR. AMEYA MANLEYCC
--- NOTE | 2017-11-01 08:30 | NUR ---
Carbider in to see patient. No new needs or request at this time., When medically stable she will be discharged to home.
--- NOTE | 2017-11-01 09:00 | NUR ---
PATIENT STATES THAT ATIVAN WAS EFECTIVE. JUAN KEATING, SPNRCC
[2017-11-01] MEDS ORDERED: LEVOFLOXACIN500 MG PO (09:06)
[2017-11-01] MEDS ORDERED: GLUCOPHAGE500 MG PO (09:06)
[2017-11-01] MEDS ORDERED: PREDNISONE10 MG PO (09:07)
--- NOTE | 2017-11-01 09:25 | NUR ---
PT REFUSED LOVENOX INJECTION JUAN KEATING, AMEYACC
--- NOTE | 2017-11-01 10:30 | NUR ---
PATIENT DISCHARED, NO SIGNS OF DISTRESS, BROUGHT TO CAR, LEFT IN CARE OF . JUAN GARCIA
--- NOTE | 2017-11-01 10:35 | NUR ---
DISCHARGE INSTRUCTIONS REVIEWED. HEPLOCK DISCONTINUED. RETURN TO WORK SLIP GIVEN TO PATIENT AFTER SPEAKING WITH ALYSIA HENNESSY NP.
--- NOTE | 2017-11-01 10:40 | NUR ---
PT DISCHARGED IN CARE OF , PT DISCHARGED TO CAR VIA W/C ACCOMPANIED BY STUDENT NURSE, CONDITION STABLE JUAN KEATING SPNRCC
== END 2017-11-01 10:40 | disposition home or self-care (01) | DRG 871 ==
LOC: ED 13:54 → 4E 19:29 → EDHOLD 19:29 → 4E 19:52
PROVIDERS: Internal Medicine; Physician Assistant; Registered Nurse; ADMIT Emergency Medicine
DX: A41.9 Sepsis, unspecified organism (principal); J18.9 Pneumonia, unspecified organism; E44.0 Moderate protein-calorie malnutrition; J45.901 Unspecified asthma with (acute) exacerbation; Z68.41 Body mass index [BMI] 40.0-44.9, adult; F07.81 Postconcussional syndrome; E11.9 Type 2 diabetes mellitus without complications; E66.9 Obesity, unspecified; E28.2 Polycystic ovarian syndrome; F41.0 Panic disorder [episodic paroxysmal anxiety]; F43.10 Post-traumatic stress disorder, unspecified; W18.39XA Other fall on same level, initial encounter; Z77.29 Contact with and (suspected) exposure to other hazardous substances; Z88.8 Allergy status to other drugs, medicaments and biological substances; Z79.899 Other long term (current) drug therapy; Z90.89 Acquired absence of other organs; Z83.3 Family history of diabetes mellitus; Z82.5 Family history of asthma and other chronic lower respiratory diseases; Z82.49 Family history of ischemic heart disease and other diseases of the circulatory system; Z84.89 Family history of other specified conditions; Y93.89 Activity, other specified; Y92.89 Other specified places as the place of occurrence of the external cause; Y99.8 Other external cause status

== ENCOUNTER 2018-01-10 04:36 | Emergency (ER) | payer OTHER ==
[~2018-01-10] VITALS: Ht 177.8 cm; Wt 128.8 kg
[~2018-01-10 04:36] MED LIST changes: +LEVOFLOXACIN500 MG PO
[2018-01-10 04:46] VITALS: BP 164/88
[2018-01-10] MEDS ORDERED: Motrin,Rufen800 MG PO (06:13)
== END 2018-01-10 06:37 | disposition home or self-care (01) ==
LOC: ED 04:36
DX: S40.012A Contusion of left shoulder, initial encounter (principal); S00.83XA Contusion of other part of head, initial encounter; E11.9 Type 2 diabetes mellitus without complications; E66.9 Obesity, unspecified; Z68.39 Body mass index [BMI] 39.0-39.9, adult; Z88.1 Allergy status to other antibiotic agents; W22.8XXA Striking against or struck by other objects, initial encounter; Y93.89 Activity, other specified; Y92.89 Other specified places as the place of occurrence of the external cause; Y99.8 Other external cause status

== ENCOUNTER 2018-03-05 10:15 | Emergency (ER) | payer OTHER ==
[~2018-03-05] VITALS: Ht 177.8 cm; Wt 107.5 kg
[2018-03-05 10:15] VITALS: BP 124/73
[~2018-03-05 10:15] MED LIST changes: +Motrin,Rufen800 MG PO
[2018-03-05 10:44] LABS: BASO # 0.1 10*3/uL (0.0-0.1); BASO % 0.6 % (0.0-1.0); EOS % 0.2 % (1.0-4.0); HEMATOCRIT 45.2 % (37.0-47.0); HEMOGLOBIN 15.4 g/dl (12.0-16.0); LYMPH # 2.2 10*3/uL (1.3-4.4); LYMPH % 25.4 % (27.0-41.0); MEAN CORPUSCULAR HGB 27.9 pg (27.0-31.0); MEAN CORPUSCULAR HGB CONC 34.1 g/dl (33.0-37.0); MEAN PLATELET VOLUME 10.9 fl (9.6-12.3); MONO # 0.5 10*3/uL (0.1-1.0); MONO % 6.2 % (3.0-9.0); NEUT # 5.7 10*3/uL (2.3-7.9); NEUT % 67.2 % (47.0-73.0); PLATELET COUNT AUTOMATED 288 10*3/uL (130-400); RED BLOOD COUNT 5.51 10*6/uL (4.10-5.10); RED CELL DISTRI WIDTH 12.7 % (0-14.5); WHITE BLOOD COUNT 8.5 10*3/uL (4.8-10.8)
[2018-03-05 10:44] LABS: BILIRUBIN NEGATIVE (NEGATIVE); BLOOD NEGATIVE (NEGATIVE); CLARITY CLOUDY (CLEAR); COLOR YELLOW (YELLOW); GLUCOSE 3+ (NEGATIVE); KETONE 1+ (NEGATIVE); LEUKO ESTERASE NEGATIVE (NEGATIVE); NITRITE NEGATIVE (NEGATIVE); PH 5.5 (5.0-9.0); UROBILINOGEN 0.2 E.U./dl (0.2-1.0)
[2018-03-05 10:54] LABS: BACTERIA 2+; EPITHELIAL CELLS 15-20; WBC 16-20 wbc/hpf (0-5)
[2018-03-05 10:55] LABS: YEAST 3+
[2018-03-05 11:02] LABS: ALBUMIN 3.6 gm/dl (3.1-4.5); ALKALINE PHOSPHATASE 72 U/L (45-117); BUN 10 mg/dl (7-24); CHLORIDE 102 mmol/L (98-107); CREATININE 0.85 mg/dL (0.55-1.02); POTASSIUM 3.8 mmol/L (3.5-5.1); SGOT/AST 27 IU/L (3-35); SGPT/ALT 41 U/L (12-78); SODIUM 139 mmol/L (136-145); TOTAL PROTEIN 6.9 gm/dL (6.4-8.2)
[2018-03-05] MEDS ORDERED: ZOFRAN4 MG PO (11:09)
[2018-03-05] MEDS ORDERED: MECLIZINE HCL25 M2 PO (11:09)
== END 2018-03-05 11:15 | disposition home or self-care (01) ==
LOC: ED 10:15
PROVIDERS: Nurse Practitioner Family
DX: R42 Dizziness and giddiness (principal); E11.65 Type 2 diabetes mellitus with hyperglycemia; R03.0 Elevated blood-pressure reading, without diagnosis of hypertension; J45.909 Unspecified asthma, uncomplicated; E66.9 Obesity, unspecified; Z77.22 Contact with and (suspected) exposure to environmental tobacco smoke (acute) (chronic); Z68.39 Body mass index [BMI] 39.0-39.9, adult; Z88.1 Allergy status to other antibiotic agents

== ENCOUNTER → 2018-03-13 | Outpatient (CLI) | payer OTHER ==
[~2018-03-13] MED LIST changes: +MECLIZINE HCL25 M2 PO
== END | disposition home or self-care (01) ==
LOC: RAD 11:07
DX: M54.42 Lumbago with sciatica, left side (principal); R20.0 Anesthesia of skin

== ENCOUNTER → 2018-03-21 | Outpatient (CLI) | payer OTHER | LOC: US 16:00 | DX: R10.2 Pelvic and perineal pain (principal) ==

== ENCOUNTER → 2018-07-25 | Outpatient (CLI) | payer OTHER ==
[~2018-07-25] MED LIST changes: +VIBRAMYCIN100 MG PO
== END | disposition home or self-care (01) ==
LOC: US 11:30
DX: N92.0 Excessive and frequent menstruation with regular cycle (principal); N94.89 Other specified conditions associated with female genital organs and menstrual cycle

== ENCOUNTER 2018-09-21 10:45 | Emergency (ER) | payer OTHER ==
[~2018-09-21] VITALS: Ht 177.8 cm; Wt 109.8 kg
--- NOTE | ~2018-09-21 | EKG ---
[place], [place] ELECTROCARDIOGRAM REPORT NAME: RODERICK OJEDA UNIT #: [id number] ROOM: DOCTOR: EPIPHANY DRAFT REPORT BIRTHDATE: [birth year] [facility] Test Date: 2018-09-21 Test Time: 12:36:30 Pat Name: RODERICK OJEDA Department: Room: Gender: F Digital Associate: ADRIANA : 1995 Requested By: СВЕТЛАНА MICHAEL Order Number: [id number] Reading MD: Prakash Jacobsen MD Measurements Intervals [place] Rate: 88 P: MT: QRS: 14 QRSD: 82 T: 20 QT: 382 QTc: 463 Interpretive Statements Normal sinus rhythm Low voltage, precordial leads Baseline wander in lead(s) I,III,aVL No previous ECG available for comparison Electronically Signed On 09-22-2018 13:10:02 PST by Prakash Jacobsen MD CM:EKGRPT:ELECTROCARDIOGRAM REPORT [id number] 1310 СВЕТЛАНА BYRD DRAFT REPORT СВЕТЛАНА MICHAEL M.D.
[~2018-09-21 10:45] MED LIST changes: -VIBRAMYCIN100 MG PO
[2018-09-21 11:35] LABS: BASO # 0.1 10*3/uL (0.0-0.1); BASO % 0.5 % (0.0-1.0); EOS % 0.3 % (1.0-4.0); HEMATOCRIT 45.4 % (37.0-47.0); HEMOGLOBIN 15.4 g/dl (12.0-16.0); LYMPH # 2.7 10*3/uL (1.3-4.4); LYMPH % 23.7 % (27.0-41.0); MEAN CELL VOLUME 84.5 fl (81.0-99.0); MEAN CORPUSCULAR HGB 28.7 pg (27.0-31.0); MEAN CORPUSCULAR HGB CONC 33.9 g/dl (33.0-37.0); MEAN PLATELET VOLUME 10.8 fl (9.6-12.3); MONO # 0.8 10*3/uL (0.1-1.0); NEUT # 7.8 10*3/uL (2.3-7.9); PLATELET COUNT AUTOMATED 323 10*3/uL (130-400); RED BLOOD COUNT 5.37 10*6/uL (4.10-5.10); RED CELL DISTRI WIDTH 12.2 % (0-14.5); WHITE BLOOD COUNT 11.5 10*3/uL (4.8-10.8)
[2018-09-21 11:47] LABS: BUN 11 mg/dl (7-24); CHLORIDE 108 mmol/L (98-107); CREATININE 0.82 mg/dL (0.55-1.02); POTASSIUM 3.7 mmol/L (3.5-5.1); SODIUM 140 mmol/L (136-145)
[2018-09-21 11:48] VITALS: BP 106/59
[2018-09-21] MEDS ORDERED: VIBRAMYCIN100 MG PO (13:56)
== END 2018-09-21 14:17 | disposition home or self-care (01) ==
LOC: ED 10:45
PROVIDERS: Emergency Medicine
DX: J45.909 Unspecified asthma, uncomplicated (principal); E11.9 Type 2 diabetes mellitus without complications; E66.9 Obesity, unspecified; Z88.1 Allergy status to other antibiotic agents; Z68.39 Body mass index [BMI] 39.0-39.9, adult

== ENCOUNTER → 2018-10-15 | Outpatient (CLI) | payer OTHER ==
[~2018-10-15] MED LIST changes: +VIBRAMYCIN100 MG PO
== END | disposition home or self-care (01) ==
LOC: CP 14:35
DX: R06.02 Shortness of breath (principal); J45.909 Unspecified asthma, uncomplicated; F17.210 Nicotine dependence, cigarettes, uncomplicated

== ENCOUNTER → 2018-11-23 | Outpatient (CLI) | payer OTHER ==
[~2018-11-23] MED LIST changes: +CLARITIN10 MG PO; +CLINDAMYCIN HC300 MG PO; +GLUCOPHAGE1000 MG PO; +GLYBURIDE2.5 MG PO; +VITAMIN B122500 MC1 PO; +VITAMIN C500 M6 PO
[2018-11-23 12:43] LABS: BASO % 0.4 % (0.0-1.0); EOS # 0.1 10*3/uL (0.0-0.4); EOS % 0.7 % (1.0-4.0); HEMATOCRIT 43.2 % (37.0-47.0); HEMOGLOBIN 14.2 g/dl (12.0-16.0); LYMPH # 2.1 10*3/uL (1.3-4.4); LYMPH % 22.7 % (27.0-41.0); MEAN CELL VOLUME 85.2 fl (81.0-99.0); MEAN CORPUSCULAR HGB CONC 32.9 g/dl (33.0-37.0); MEAN PLATELET VOLUME 10.3 fl (9.6-12.3); MONO # 0.6 10*3/uL (0.1-1.0); MONO % 7.1 % (3.0-9.0); NEUT # 6.2 10*3/uL (2.3-7.9); NEUT % 68.5 % (47.0-73.0); PLATELET COUNT AUTOMATED 323 10*3/uL (130-400); RED BLOOD COUNT 5.07 10*6/uL (4.10-5.10); RED CELL DISTRI WIDTH 12.8 % (0-14.5); WHITE BLOOD COUNT 9.1 10*3/uL (4.8-10.8)
[2018-11-23 13:02] LABS: ALBUMIN 3.3 gm/dl (3.1-4.5); ALKALINE PHOSPHATASE 66 U/L (45-117); BUN 14 mg/dl (7-24); CHLORIDE 106 mmol/L (98-107); CHOLESTEROL 159 mg/dL (<200); HDL CHOLESTEROL 27 mg/dl (40-60); LDL CHOLESTEROL 100 mg/dL (9-159); SGOT/AST 28 IU/L (3-35); SGPT/ALT 48 U/L (12-78); SODIUM 139 mmol/L (136-145); TOTAL PROTEIN 6.9 gm/dL (6.4-8.2); TRIGLYCERIDES 159 mg/dl (<150); VLDL CHOLESTEROL 32 mg/dL (6-40)
== END | disposition home or self-care (01) ==
LOC: LAB 11:55
PROVIDERS: Internal Medicine Cardiovascular Disease
DX: I49.3 Ventricular premature depolarization (principal); E11.9 Type 2 diabetes mellitus without complications; R07.9 Chest pain, unspecified

== ENCOUNTER → 2018-11-28 | Outpatient (CLI) | payer OTHER ==
--- NOTE | ~2018-11-28 | ST ---
[place], [place] EXERCISE STRESS TEST REPORT NAME: [id number] UNIT #: [id number] ROOM: DOCTOR: PANCHO WHITMAN MD BIRTHDATE: [birth year] DOS: 11/28/2018 EXERCISE STRESS TEST REASON FOR TESTING: Atypical chest pain. Baseline EKG, normal sinus rhythm, normal EKG. DESCRIPTION OF PROCEDURE: Informed consent was obtained after explaining the risks and benefits. The patient walked for 6 minutes and 0 seconds on Ruperto protocol stress test and was stopped due to fatigue and dyspnea. She achieved a maximum heart rate of 150, which is represented 77% of maximum predicted heart rate at a workload of 7 mets. There were no changes on the exercise EKG. The patient experienced no chest pain. Ocampo treadmill score was 6 consistent with a low risk cardiovascular events. Below average functional capacity. There was an appropriate blood pressure and heart rate response to exercise and recovery. No prior EKGs to compare. Low risk exercise stress test. Pancho Whitman MD CM:STRESS:EXERCISE STRESS TEST REPORT [id number] 1105 PANCHO WHITMAN MD
--- NOTE | 2018-11-28 10:30 | NUR ---
INFORMED CONSENT OBTAINED FOR A STANDARD STRESS TEST WITH DR. WHITMAN. RESTING EKG NSR WITH A RARE PVC, HT RT 89, AND BP OF 110/74 IN A SUPINE POSITION. HT RT OF 90, AND A BP OF 94/68 IN A STANDING POSITION. PT COMPLETED 6:00 MINUTES OF A JUAN ALBERTO PROTOCOL WITH COMPLETION OF LEVEL II AT 2.5 MPH ANS 12% GRADE. REACHED A HT RT OF 150 WHICH IS 77% OF PREDICTED MAX WITH A PEAK BP OF 170/74. TEST TERMINATED DUE TO FATIGUE. C/O SOB, POX 95% DURING EXERCISE. RELIEVED IN RECOVERY. HAS A LOW EXERCISE TOLERANCE. DISCHARGED IN STABLE CONDITION.
== END | disposition home or self-care (01) ==
LOC: CARD 00:09
DX: R07.2 Precordial pain (principal); R07.89 Other chest pain; I49.3 Ventricular premature depolarization; E11.9 Type 2 diabetes mellitus without complications

== ENCOUNTER → 2018-12-11 | Outpatient (CLI) | payer OTHER | END | disposition home or self-care (01) | LOC: CARD 11:54 | DX: I08.1 Rheumatic disorders of both mitral and tricuspid valves (principal); I49.3 Ventricular premature depolarization; E11.9 Type 2 diabetes mellitus without complications; R07.2 Precordial pain; R01.1 Cardiac murmur, unspecified; R06.02 Shortness of breath ==

== ENCOUNTER 2019-01-03 22:03 | Emergency (ER) | payer OTHER ==
[~2019-01-03] VITALS: Ht 177.8 cm; Wt 136.5 kg
[~2019-01-03 22:03] MED LIST changes: -CLINDAMYCIN HC300 MG PO
[2019-01-03 22:08] VITALS: BP 124/69
[2019-01-03 23:20] LABS: BASO # 0.1 10*3/uL (0.0-0.1); BASO % 0.5 % (0.0-1.0); EOS # 0.1 10*3/uL (0.0-0.4); EOS % 0.7 % (1.0-4.0); HEMATOCRIT 41.7 % (37.0-47.0); HEMOGLOBIN 13.8 g/dl (12.0-16.0); LYMPH # 2.8 10*3/uL (1.3-4.4); LYMPH % 24.8 % (27.0-41.0); MEAN CELL VOLUME 84.2 fl (81.0-99.0); MEAN CORPUSCULAR HGB 27.9 pg (27.0-31.0); MEAN CORPUSCULAR HGB CONC 33.1 g/dl (33.0-37.0); MEAN PLATELET VOLUME 10.5 fl (9.6-12.3); MONO # 0.7 10*3/uL (0.1-1.0); MONO % 5.9 % (3.0-9.0); NEUT # 7.6 10*3/uL (2.3-7.9); NEUT % 67.7 % (47.0-73.0); PLATELET COUNT AUTOMATED 363 10*3/uL (130-400); RED BLOOD COUNT 4.95 10*6/uL (4.10-5.10); RED CELL DISTRI WIDTH 12.9 % (0-14.5); WHITE BLOOD COUNT 11.3 10*3/uL (4.8-10.8)
[2019-01-03 23:35] LABS: BUN 14 mg/dl (7-24); CHLORIDE 106 mmol/L (98-107); CREATININE 0.86 mg/dL (0.55-1.02); POTASSIUM 3.8 mmol/L (3.5-5.1); SODIUM 140 mmol/L (136-145)
[2019-01-03] MEDS ORDERED: CLINDAMYCIN HC300 MG PO (23:57)
== END 2019-01-04 | disposition home or self-care (01) ==
LOC: ED 22:03
PROVIDERS: Emergency Medicine Emergency Medical Services
DX: N76.4 Abscess of vulva (principal); J45.909 Unspecified asthma, uncomplicated; E11.9 Type 2 diabetes mellitus without complications; E66.9 Obesity, unspecified; Z68.30 Body mass index [BMI] 30.0-30.9, adult

== ENCOUNTER 2019-08-31 21:53 | Emergency (ER) | payer OTHER ==
[~2019-08-31] VITALS: Ht 177.8 cm; Wt 104.3 kg
[~2019-08-31 21:53] MED LIST changes: +CLINDAMYCIN HC300 MG PO
[2019-08-31 21:54] VITALS: BP 102/72
[2019-08-31] MEDS ORDERED: ZITHROMAX250 MG PO (22:44)
[2019-08-31] MEDS ORDERED: IPRATROPIU0.2 MG/1 M NEB (22:44)
[2019-08-31] MEDS ORDERED: ACULAR 3ML 3 ML5 ML OPH (22:44)
== END 2019-08-31 23:27 | disposition home or self-care (01) ==
LOC: ED 21:53
DX: H10.13 Acute atopic conjunctivitis, bilateral (principal); J45.901 Unspecified asthma with (acute) exacerbation; H66.91 Otitis media, unspecified, right ear; E11.9 Type 2 diabetes mellitus without complications; E66.9 Obesity, unspecified; Z68.39 Body mass index [BMI] 39.0-39.9, adult; Z90.89 Acquired absence of other organs; Z98.890 Other specified postprocedural states; Z88.1 Allergy status to other antibiotic agents; Z79.899 Other long term (current) drug therapy

== ENCOUNTER 2021-10-19 15:32 | Emergency (ER) | payer OTHER ==
[~2021-10-19] VITALS: Ht 180.3 cm; Wt 121.1 kg
[~2021-10-19 15:32] MED LIST changes: +ACULAR 3ML 3 ML5 ML OPH; +IPRATROPIU0.2 MG/1 M NEB; +ZITHROMAX250 MG PO
[2021-10-19 15:47] VITALS: BP 121/86
[2021-10-19] MEDS ORDERED: METFORMIN XR500 MG PO (15:49)
[2021-10-19] MEDS ORDERED: HUMALOG100 UNIT/1 SC (15:50)
[2021-10-19 19:19] LABS: BASO # 0.1 10*3/uL (0.0-0.1); BASO % 0.6 % (0.0-1.0); EOS # 0.1 10*3/uL (0.0-0.4); EOS % 1.3 % (1.0-4.0); HEMATOCRIT 47.9 % (37.0-47.0); LYMPH # 2.3 10*3/uL (1.3-4.4); LYMPH % 27.2 % (27.0-41.0); MEAN CELL VOLUME 82.6 fl (81.0-99.0); MEAN CORPUSCULAR HGB 28.1 pg (27.0-31.0); MEAN PLATELET VOLUME 10.9 fl (9.6-12.3); MONO # 0.6 10*3/uL (0.1-1.0); MONO % 7.2 % (3.0-9.0); NEUT # 5.5 10*3/uL (2.3-7.9); NEUT % 63.5 % (47.0-73.0); PLATELET COUNT AUTOMATED 352 10*3/uL (130-400); RED CELL DISTRI WIDTH 12.7 % (0-14.5); WHITE BLOOD COUNT 8.6 10*3/uL (4.8-10.8)
[2021-10-19 19:30] LABS: ACT PARTIAL THROMBO TIME 26.3 SECONDS (20.0-32.1)
[2021-10-19 19:35] LABS: ALBUMIN 3.6 gm/dl (3.1-4.5); ALKALINE PHOSPHATASE 87 U/L (45-117); BUN 14 mg/dl (7-24); CHLORIDE 105 mmol/L (98-107); CREATININE 0.76 mg/dL (0.55-1.02); LIPASE 81 U/L (73-393); SGOT/AST 14 IU/L (3-35); SGPT/ALT 35 U/L (12-78); SODIUM 136 mmol/L (136-145); TOTAL PROTEIN 7.5 gm/dL (6.4-8.2)
[2021-10-19 20:13] LABS: BILIRUBIN Negative (Negative); BLOOD Negative (Negative); CLARITY Clear (Clear); COLOR Yellow (Yellow); GLUCOSE 3+ (Negative); KETONE Trace (Negative); LEUKO ESTERASE Negative (Negative); NITRITE Negative (Negative); SPECIFIC GRAVITY >= 1.030 (1.001-1.030); UROBILINOGEN 0.2 E.U./dl (0.0-1.0)
[2021-10-19 20:26] LABS: BACTERIA 2+; HYALINE CAST 0-2
[2021-10-19] MEDS ORDERED: MECLIZINE HCL25 M2 PO (22:38)
== END 2021-10-19 22:41 | disposition home or self-care (01) ==
LOC: ED 15:32
PROVIDERS: Physician Assistant
DX: R42 Dizziness and giddiness (principal); R11.0 Nausea; Z88.1 Allergy status to other antibiotic agents; Z88.6 Allergy status to analgesic agent; Z79.899 Other long term (current) drug therapy

== ENCOUNTER 2023-04-18 07:11 | Emergency (ER) | payer OTHER ==
[~2023-04-18] VITALS: Ht 177.8 cm; Wt 154.2 kg
[~2023-04-18 07:11] MED LIST changes: +HUMALOG100 UNIT/1 SC; +METFORMIN XR500 MG PO
[2023-04-18] MEDS ORDERED: CYMBALTA60 MG PO (07:23)
[2023-04-18] MEDS ORDERED: JARDIANCE10 MG PO (07:23)
[2023-04-18 07:24] VITALS: BP 147/80
[2023-04-18 08:07] LABS: BASO % 0.2 % (0.0-1.0); EOS % 0.3 % (1.0-4.0); HEMATOCRIT 46.7 % (37.0-47.0); LYMPH # 0.5 10*3/uL (1.3-4.4); MEAN CELL VOLUME 83.7 fl (81.0-99.0); MEAN CORPUSCULAR HGB 28.7 pg (27.0-31.0); MEAN CORPUSCULAR HGB CONC 34.3 g/dl (33.0-37.0); MEAN PLATELET VOLUME 10.3 fl (9.6-12.3); MONO # 0.6 10*3/uL (0.1-1.0); MONO % 5.9 % (3.0-9.0); NEUT # 9.4 10*3/uL (2.3-7.9); NEUT % 88.3 % (47.0-73.0); PLATELET COUNT AUTOMATED 303 10*3/uL (130-400); RED BLOOD COUNT 5.58 10*6/uL (4.10-5.10); RED CELL DISTRI WIDTH 12.9 % (0-14.5); WHITE BLOOD COUNT 10.6 10*3/uL (4.8-10.8)
[2023-04-18 08:54] LABS: ALKALINE PHOSPHATASE 69 U/L (46-116); BUN 15 mg/dl (9-23); CHLORIDE 104 mmol/L (98-107); LIPASE 29 U/L (12-53); POTASSIUM 3.8 mmol/L (3.4-5.1); SGPT/ALT 12 U/L (10-49); TOTAL PROTEIN 6.7 gm/dL (6.0-8.0)
[2023-04-18 08:58] LABS: BETA-HCG, QUANT < 3.0 mIU/mL (3-10)
[2023-04-18 09:11] LABS: BILIRUBIN Negative (Negative); BLOOD 3+ (Negative); CLARITY Cloudy (Clear); COLOR Orange (Yellow); GLUCOSE 3+ (Negative); KETONE 1+ (Negative); LEUKO ESTERASE Negative (Negative); NITRITE Negative (Negative); SPECIFIC GRAVITY >= 1.030 (1.001-1.030)
[2023-04-18 09:26] LABS: EPITHELIAL CELLS TNTC; RBC TNTC rbc/hpf (0-2)
[2023-04-18 09:27] LABS: BACTERIA TRACE
[2023-04-18] MEDS ORDERED: PHENERGAN25 M3 PO (14:05)
== END 2023-04-18 14:13 | disposition home or self-care (01) ==
LOC: ED 07:11
PROVIDERS: Emergency Medicine
DX: R10.31 Right lower quadrant pain (principal); R11.2 Nausea with vomiting, unspecified; F41.9 Anxiety disorder, unspecified; F32.A Depression, unspecified; I10 Essential (primary) hypertension; J45.909 Unspecified asthma, uncomplicated; E11.9 Type 2 diabetes mellitus without complications; Z88.8 Allergy status to other drugs, medicaments and biological substances; Z90.89 Acquired absence of other organs

== ENCOUNTER 2023-09-19 12:13 | Emergency (ER) | payer OTHER ==
[~2023-09-19] VITALS: Ht 177.8 cm; Wt 127.0 kg
[~2023-09-19 12:13] MED LIST changes: +CYMBALTA60 MG PO; +JARDIANCE10 MG PO; +PHENERGAN25 M3 PO
[2023-09-19 12:20] VITALS: BP 140/79
[2023-09-19] MEDS ORDERED: LANTUS SOL100 UNIT/1 SC (12:24)
[2023-09-19] MEDS ORDERED: INSULIN LI100 UNIT/2 SQ (12:24)
[2023-09-19] MEDS ORDERED: DULOXETINE HCL60 MG PO (12:25)
[2023-09-19] MEDS ORDERED: VITAMIN D350 MC2 PO (12:25)
[2023-09-19] MEDS ORDERED: SPIRONOLACTONE100 MG PO (12:25)
[2023-09-19] MEDS ORDERED: PROVENTIL HFA6.7 GM INH (12:25)
== END 2023-09-19 14:18 | disposition home or self-care (01) ==
LOC: ED 12:13
DX: S09.90XA Unspecified injury of head, initial encounter (principal); M25.512 Pain in left shoulder; F41.9 Anxiety disorder, unspecified; F32.A Depression, unspecified; I10 Essential (primary) hypertension; J45.909 Unspecified asthma, uncomplicated; E11.9 Type 2 diabetes mellitus without complications; Z88.6 Allergy status to analgesic agent; Z88.8 Allergy status to other drugs, medicaments and biological substances; Z90.89 Acquired absence of other organs; W01.198A Fall on same level from slipping, tripping and stumbling with subsequent striking against other object, initial encounter; Y93.E8 Activity, other personal hygiene; Y92.002 Bathroom of unspecified non-institutional (private) residence as the place of occurrence of the external cause; Y99.8 Other external cause status

== ENCOUNTER → 2023-12-07 | Outpatient (CLI) | payer OTHER ==
[~2023-12-07] MED LIST changes: +DULOXETINE HCL60 MG PO; +INSULIN LI100 UNIT/2 SQ; +LANTUS SOL100 UNIT/1 SC; +PROVENTIL HFA6.7 GM INH; +SPIRONOLACTONE100 MG PO; +VITAMIN D350 MC2 PO
== END | disposition home or self-care (01) ==
LOC: LAB 10:38
PROVIDERS: Student in an Organized Health Care Education/Training Program; ATTEND Family Medicine
DX: R76.11 Nonspecific reaction to tuberculin skin test without active tuberculosis (principal)

== ENCOUNTER 2024-02-24 09:33 | Emergency (ER) | payer OTHER ==
[~2024-02-24] VITALS: Ht 177.8 cm; Wt 135.2 kg
[2024-02-24 09:53] VITALS: BP 104/78
[2024-02-24] MEDS ORDERED: METFORMIN XR500 MG PO (09:55)
[2024-02-24] MEDS ORDERED: SODIUM CHLORIDE 0.9% 1,000 ML IV ONE (10:20)
[2024-02-24 10:45] LABS: BASO # 0.1 10*3/uL (0.0-0.1); BASO % 0.6 % (0.0-1.0); EOS % 0.5 % (1.0-4.0); HEMATOCRIT 46.4 % (37.0-47.0); LYMPH % 24.9 % (27.0-41.0); MEAN CORPUSCULAR HGB 28.2 pg (27.0-31.0); MEAN CORPUSCULAR HGB CONC 33.2 g/dl (33.0-37.0); MONO # 0.5 10*3/uL (0.1-1.0); MONO % 6.1 % (3.0-9.0); NEUT # 5.4 10*3/uL (2.3-7.9); NEUT % 67.6 % (47.0-73.0); PLATELET COUNT AUTOMATED 323 10*3/uL (130-400); RED BLOOD COUNT 5.46 10*6/uL (4.10-5.10); RED CELL DISTRI WIDTH 12.9 % (0-14.5)
[2024-02-24 11:10] LABS: ALKALINE PHOSPHATASE 71 U/L (46-116); BUN 10 mg/dl (9-23); CHLORIDE 109 mmol/L (98-107); SGPT/ALT 15 U/L (5-49)
[2024-02-24 12:07] LABS: BILIRUBIN Negative (Negative); BLOOD Negative (Negative); CLARITY Cloudy (Clear); COLOR Yellow (Yellow); GLUCOSE 3+ (Negative); KETONE Trace (Negative); LEUKO ESTERASE 1+ (Negative); NITRITE Negative (Negative); PH 5.5 (4.5-8.0); SPECIFIC GRAVITY >= 1.030 (1.001-1.030); UROBILINOGEN 0.2 E.U./dl (0.0-1.0)
[2024-02-24 12:21] LABS: BACTERIA 3+; EPITHELIAL CELLS 21-30; YEAST 2+
[2024-02-24] MEDS ORDERED: Nitrofurantoin Monohydrate/N 100 MG CAP PO ONE (13:30)
[2024-02-24] MEDS ORDERED: MACROBID100 M1 PO (13:33)
== END 2024-02-24 13:45 | disposition home or self-care (01) ==
LOC: ED 09:33
PROVIDERS: Internal Medicine
DX: N39.0 Urinary tract infection, site not specified (principal); R11.0 Nausea; F41.9 Anxiety disorder, unspecified; F32.A Depression, unspecified; I10 Essential (primary) hypertension; J45.909 Unspecified asthma, uncomplicated; E11.9 Type 2 diabetes mellitus without complications; Z88.6 Allergy status to analgesic agent; Z88.8 Allergy status to other drugs, medicaments and biological substances; Z90.89 Acquired absence of other organs